=== PATIENT | female | born 1960 | race Caucasian/White ===

== ENCOUNTER 2020-07-20 09:39 | Emergency (ER) | payer BC, SELFPAY ==
[2020-07-20 09:45] VITALS: BP 147/71; PULSE 77; RESP 20; TEMP 37; O2SAT 99; BMI 30.5
--- NOTE | 2020-07-20 10:27 | HMH.EDUTC ---
[facility] [place] Disposition Clinical Impression: COVID-19 virus test result unknown Sinusitis Qualifiers: Sinusitis location: maxillary Chronicity: acute Recurrence: non-recurrent Qualified Code(s): J01.00 - Acute maxillary sinusitis, unspecified Disposition: Home, Self-Care Condition on Discharge: Good Instructions: DI for Sinusitis, Sinusitis, DI for COVID-19 (Suspected or Confirmed ), COVID-19: Protecting Yourself When You're at High Risk, Preventing the Spread of Coronavirus Discharge Instructions Additional Instructions: Start antibiotic patient to take as ordered for a full length of time even if you feel better. Sinus infections do not get better overnight. It may take 2-3 days to notice much improvement so be sure to use conservative measures as discussed for symptoms. Flonase 1 spray each nostril daily to help with nasal congestion, sinus and ear pressure/information Increase fluids Humidifier/vaporizer as needed Tylenol and ibuprofen as needed for fever or pain. If symptoms do not improve or get worse return or be seen in the ER Follow-up with primary care this week self isolate until test results are known Prescriptions: Fluticasone Propionate [Flonase 50mcg nasal spray 16gm] 1 spr NS DAILY 14 Days #1 bottle Transmission Status: Pending to [email or web address] # Azithromycin [Zithromax 250mg tab] 250 mg PO DIRECTED #6 tab Transmission Status: Pending to [email or web address] # Referrals: Roxana Willis [Primary Care Provider] - Time of Disposition: 10:33 Medical Decision Making - Bryan Inquiry Pt receiving controlled substance: No Vital Signs: 07/20/20 09:45 Temperature 98.6 F Temperature Source Oral Pulse Rate [Right Brachial] 77 Respiratory Rate 20 Blood Pressure [Right Arm] 147/71 H Blood Pressure Mean [Right Arm] 96 Blood Pressure Source [Right Arm] Automatic Cuff Blood Pressure Position [Right Arm] Sitting 02 Sat by Pulse Oximetry 99 Oxygen Delivery Method Room Air Orders (Tests/Meds): ORDERS Category Date Time Status Covid-19 Nasal PCR ([facility]) Routine Lab 07/20/20 10:18 Ordered [facility] HPI - General Chief complaint: Urgent [facility] Stated complaint: cough, sore throat, congestion Time Seen by Provider: 07/20/20 10:27 Mode of Arrival: Ambulatory Source of Information: Patient Limitations: No Limitations Description of Symptoms (Recalled from Triage Doc. by RN): PATIENT C/O COUGH, BODY ACHES, SINUS/CHEST CONGESTION, CHILLS, AND SCRATCHY THROAT X 2 DAYS. REQUESTING COVID TEST HEENT Symptoms (Recalled from RN notes): Yes Resp Symptoms (Recalled from RN notes): Yes Skin Symptoms (Recalled from RN notes): No MS Symptoms (Recalled from RN notes): No Functional Status (Recalled from RN notes): WNL - History of Present Illness Provider Complaint: 59 yr old female presents for sinus pressure,yellow green nasal drainage, body aches and cough for 2 days. - Related Data Previous Rx's Medication Instructions Recorded Azithromycin [Zithromax 250mg 250 mg PO DIRECTED #6 tab 07/20/20 tab] Fluticasone Propionate [Flonase 1 spr NS DAILY 14 Days #1 bottle 07/20/20 50mcg nasal spray 16gm] Allergies Allergy/AdvReac Type Severity Reaction Status Date / Time No Known Allergies Allergy Verified 07/20/20 10:20 - Worker's Comp Is this a Worker's Comp case?: No [facility] History - Hepatitis A Screen Drug use history?: No High risk sexual behaviors?: No History of sexually transmitted infection?: No Currently employed?: No Childcare worker?: No Do you have indoor plumbing?: Yes Do you have electricity?: Yes Attestation statement:: This patient has been screened for Hepatitis A risk factors. I have reviewed the patient's past medical history: Yes - Social History Alcohol Intake: never Occupational Status: other ROS Obtained: Yes Systems reviewed as appropriate & no additional complaints - Constitutional Constitutional: Reports system r
[2020-07-20 10:30] VITALS: BP 147/71; PULSE 77; RESP 20; TEMP 37; O2SAT 99
--- NOTE | 2020-07-20 18:49 | PC.NURSE ---
patient notified of positive covid results
== END 2020-07-20 10:35 | disposition home or self-care (01) ==
PROVIDERS: Emergency Provider Nurse Practitioner Family; PCP Internal Medicine
DX: U07.1 COVID-19 (principal); J01.00 Acute maxillary sinusitis, unspecified
CPT/HCPCS: 99202; G0463; U0003

== ENCOUNTER 2021-06-19 09:32 | Emergency (ER) | payer BC, SELFPAY ==
[2021-06-19 11:06] VITALS: BP 197/86; PULSE 70; RESP 16; TEMP 36.9; O2SAT 99; BMI 29.8
--- NOTE | 2021-06-19 12:41 | HMH.EDUTC ---
[facility] [place] Disposition Clinical Impression: Embedded tick of abdominal wall Qualifiers: Encounter type: initial encounter Qualified Code(s): S30.851A - Superficial foreign body of abdominal wall, initial encounter Disposition: Home, Self-Care Condition on Discharge: Good Instructions: Protect Yourself from Tickborne Illnesses Additional Instructions: Keep the wounds clean and dry. Follow up with your regular doctor for any issues. It would be a good idea to follow up regardless. Take the antibiotics as directed and apply the topical antibiotics as directed. Watch the site for signs of worsening infection, such as worsening redness, drainage, swelling, etc. Also watch for the erythema migrans (bull's eye) rash. The doxycycline is the preferred antibiotic to treat Lyme's Disease with,(so you should be covered even if you do get the rash), but follow up if you notice this anyway. GO TO THE ER FOR ANY WORSENING SYMPTOMS Eat food with the doxycycline (antibiotics). This antibiotic can be hard on your GI tract. If you absolutely can't tolerate the GI effects then please call us or your regular doctor. There are alternatives that this could be switched to if necessary. Prescriptions: Mupirocin [Bactroban 2% Ointment 22gm tube] 1 applicatio TP TID 7 Days #1 gm Transmission Status: Received by [facility] # Doxycycline Monohydrate [Doxycycline [place] 100mg Tab] 100 mg PO Q12 10 Days #20 tab Transmission Status: Received by [facility] # Referrals: Roxana Willis [Primary Care Provider] - Time of Disposition: 12:46 Medical Decision Making - Medical Records Medical records reviewed: No: I reviewed the patient's medical records. - Bryan Inquiry Pt receiving controlled substance: No Vital Signs: 06/19/21 11:06 06/19/21 12:53 Temperature 98.4 F 98.4 F Temperature Source Oral Pulse Rate 70 Pulse Rate [Left] 70 Respiratory Rate 16 16 Blood Pressure 197/86 H Blood Pressure [Right Arm] 197/86 H Blood Pressure Mean [Right Arm] 123 02 Sat by Pulse Oximetry 99 Orders (Tests/Meds): ED MEDICATIONS Discontinued Medications Generic Name Dose Route Start Last Admin Trade Name Freq PRN Reason Stop Dose Admin Lidocaine HCl 2 ml 06/19/21 12:55 06/19/21 12:56 Lidocaine 1% Pf 2ml Ampule SQ 06/19/21 12:56 2 mg ONCE ONE Administration [facility] HPI - General Stated complaint: possible tick head in right side Time Seen by Provider: 06/19/21 11:30 Mode of Arrival: Ambulatory Source of Information: Patient Limitations: No Limitations Description of Symptoms (Recalled from Triage Doc. by RN): pt states she found a tick on her R side of her ribs yesterday. pt attempted to remove it but the head of the tick is still imbedded. HEENT Symptoms (Recalled from RN notes): No Resp Symptoms (Recalled from RN notes): No Skin Symptoms (Recalled from RN notes): Yes (tick embeded in R rib side) MS Symptoms (Recalled from RN notes): No Functional Status (Recalled from RN notes): wnl - History of Present Illness Provider Complaint: She states that yesterday evening she found a very small tick embedded on her right flank. She removed the tick with tweezers, but it was embedded down into her skin and she was unable to get it all completely removed. She is having itching, discomfort and redness at the site. She denies any fever, chills, body aches or joint pain. - Related Data Previous Rx's Medication Instructions Recorded Azithromycin [Zithromax 250mg 250 mg PO DIRECTED #6 tab 07/20/20 tab] fluticasone propionate 50 1 spray INTRANASAL DAILY 14 Days 08/16/20 mcg/actuation nasal #1 g spray,suspension Doxycycline Monohydrate 100 mg PO Q12 10 Days #20 tab 06/19/21 [Doxycycline [place] 100mg Tab] Mupirocin [Bactroban 2% Ointment 1 applicatio TP TID 7 Days #1 gm 06/19/21 22gm tube] Allergies Allergy/AdvReac Type Severity Reaction Sta
[2021-06-19 12:53] VITALS: BP 197/86; PULSE 70; RESP 16; TEMP 36.9
== END 2021-06-19 12:56 | disposition home or self-care (01) ==
PROVIDERS: Emergency Provider Nurse Practitioner Family; PCP Internal Medicine
DX: S30.851A Superficial foreign body of abdominal wall, initial encounter (principal)
CPT/HCPCS: 10120; 99202; G0463

== ENCOUNTER 2021-11-16 09:01 | Emergency (ER) | payer BC, SELFPAY ==
[2021-11-16 09:23] VITALS: BP 144/57; PULSE 60; RESP 18; TEMP 36.5; O2SAT 96; BMI 29.6
--- NOTE | 2021-11-16 09:59 | HMH.EDUTC ---
[facility] [place] Disposition Clinical Impression: Tick bite Qualifiers: Encounter type: initial encounter Site of tick bite: thigh Laterality: right Qualified Code(s): S70.361A - Insect bite (nonvenomous), right thigh, initial encounter Cellulitis Qualifiers: Site of cellulitis: extremity Site of cellulitis of extremity: lower extremity Laterality: right Qualified Code(s): L03.115 - Cellulitis of right lower limb Disposition: Home, Self-Care Condition on Discharge: Good Instructions: Cellulitis, Protect Yourself from Tickborne Illnesses Additional Instructions: Keep the affected area clean and dry. Follow up with your regular doctor. Take the antibiotics as directed and apply the topical antibiotics as directed. Apply warm wet compresses to the affected area three or four times per day. The mupirocin ointment (bactroban) is for helping to treat infection, so use it regularly as directed. The triamcinoline cream is for itching at the site, use is as needed. GO TO THE ER FOR ANY WORSENING SYMPTOMS Prescriptions: Mupirocin [Bactroban 2% Ointment 22gm tube] 1 applicatio TP TID 7 Days #1 gm Transmission Status: Received by [facility] #[id number] Doxycycline Monohydrate [Doxycycline [place] 100mg Tab] 100 mg PO Q12 10 Days #20 tab Transmission Status: Received by [facility] #[id number] Triamcinolone Acetonide 1 applicatio TP TIDP PRN 7 Days #1 gm PRN Reason: Itching Transmission Status: Received by [facility] #[id number] Referrals: Roxana Willis [Primary Care Provider] - Time of Disposition: 10:03 Medical Decision Making - Medical Records Medical records reviewed: No: I reviewed the patient's medical records. - Bryan Inquiry Pt receiving controlled substance: No Vital Signs: 11/16/21 09:23 11/16/21 10:23 Temperature 97.7 F 97.7 F Temperature Source Oral Pulse Rate 60 Pulse Rate [Left] 60 Respiratory Rate 18 18 Blood Pressure 144/57 H Blood Pressure [Right Arm] 144/57 H Blood Pressure Mean [Right Arm] 86 02 Sat by Pulse Oximetry 96 [facility] [place] HPI - General Stated complaint: swollen tick bite Time Seen by Provider: 11/16/21 09:35 Mode of Arrival: Ambulatory Source of Information: Patient Description of Symptoms (Recalled from Triage Doc. by RN): on tuesday pt got a tick bite. the area is swollen and red. the tick is not still in the skin. HEENT Symptoms (Recalled from RN notes): No Resp Symptoms (Recalled from RN notes): No Skin Symptoms (Recalled from RN notes): Yes MS Symptoms (Recalled from RN notes): No Functional Status (Recalled from RN notes): wnl - History of Present Illness Provider Complaint: She found an tick that was imbedded on her right thight. She removed it, but the area around it has became red. - Related Data Previous Rx's Medication Instructions Recorded Azithromycin [Zithromax 250mg 250 mg PO DIRECTED #6 tab 07/20/20 tab] fluticasone propionate 50 1 spray INTRANASAL DAILY 14 Days 08/16/20 mcg/actuation nasal #1 g spray,suspension Doxycycline Monohydrate 100 mg PO Q12 10 Days #20 tab 06/19/21 [Doxycycline [place] 100mg Tab] Mupirocin [Bactroban 2% Ointment 1 applicatio TP TID 7 Days #1 gm 06/19/21 22gm tube] Doxycycline Monohydrate 100 mg PO Q12 10 Days #20 tab 11/16/21 [Doxycycline [place] 100mg Tab] Mupirocin [Bactroban 2% Ointment 1 applicatio TP TID 7 Days #1 gm 11/16/21 22gm tube] Triamcinolone Acetonide 1 applicatio TP TIDP PRN 7 Days #1 11/16/21 gm Allergies Allergy/AdvReac Type Severity Reaction Status Date / Time No Known Allergies Allergy Verified 11/16/21 09:27 - Worker's Comp Is this a Worker's Comp case?: No [facility] History - Hepatitis A Screen Attestation statement:: This patient has been screened for Hepatitis A risk factors. I have reviewed the patient's past medical history: Yes - Social History Alcohol Intake: never Occupational Status: other ROS Obt
[2021-11-16 10:23] VITALS: BP 144/57; PULSE 60; RESP 18; TEMP 36.5
== END 2021-11-16 10:24 | disposition home or self-care (01) ==
PROVIDERS: Emergency Provider Nurse Practitioner Family; PCP Internal Medicine
DX: S70.361A Insect bite (nonvenomous), right thigh, initial encounter (principal); L03.115 Cellulitis of right lower limb
CPT/HCPCS: 99212; G0463

== ENCOUNTER 2022-06-28 09:40 | Emergency (ER) | payer BC, SELFPAY ==
--- NOTE | 2022-06-28 11:00 | EXP.UTC ---
Discharge Plan Disposition Patient Disposition: Home, Self-Care Condition: Good Prescriptions Prescriptions: New mupirocin 2 % ointment 1 applic topical TID 7 Days Qty: 15 2RF doxycycline hyclate [doxycycline hyclate] 100 mg capsule 100 mg PO Q12 10 Days Qty: 20 0RF No Action fluticasone propionate 50 mcg/actuation spray,suspension 1 spray INTRANASAL DAILY 14 Days Qty: 1 0RF azithromycin 250 MG tablet 250 mg PO DIRECTED Qty: 6 0RF Rx Instructions: Take two (2) tablets on day #1, then one (1) tablet day #2 thru #5 triamcinolone acetonide 15 GM cream 1 applicatio TP TIDP PRN (Reason: Itching) 7 Days Qty: 1 0RF Rx Instructions: 0.025% mupirocin 22 GM ointment 1 applicatio TP TID 7 Days Qty: 1 0RF doxycycline monohydrate 100 MG tablet 100 mg PO Q12 10 Days Qty: 20 0RF doxycycline monohydrate 100 MG tablet 100 mg PO Q12 10 Days Qty: 20 0RF mupirocin 22 GM ointment 1 applicatio TP TID 7 Days Qty: 1 0RF Referrals Follow up/Referrals: Provider,Referral, MD [Primary Care Provider] - See instructions Activity Restrictions/Add. Instructions Additional Instructions/Restrictions: Take tylenol or ibuprofen for pain or fever. Take the medications as directed. Follow up with your regular doctor. GO TO THE ER FOR ANY WORSENING SYMPTOMS Clinical Impressions Clinical Impression: Tick bite Instructions Patient Instructions: DI for Insect Bites and Stings, Protect Yourself from Tickborne Illnesses Discharge ED Provider: Gaurav Skelton [facility] General Stated complaint: tick located chest Time Seen by Provider: 06/28/22 11:00 History of Present Illness Provider Complaint: She is here with a tick embedded on her left upper chest. 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 She denies any other complaints or issues. Related Data Previous Rx's Medication Instructions Recorded azithromycin 250 mg tablet 250 mg PO DIRECTED #6 tabs 07/20/20 fluticasone propionate 50 1 spray intranasal DAILY 14 days 08/16/20 mcg/actuation nasal #1 g spray,suspension doxycycline monohydrate 100 mg 100 mg PO Q12 10 days #20 tabs 06/19/21 tablet mupirocin 2 % topical ointment 1 applicatio TP TID 7 days ##1 06/19/21 doxycycline monohydrate 100 mg 100 mg PO Q12 10 days #20 tabs 11/16/21 tablet mupirocin 2 % topical ointment 1 applicatio TP TID 7 days ##1 11/16/21 triamcinolone acetonide 0.025 % 1 applicatio TP TIDP PRN Itching 7 11/16/21 topical cream days ##1 doxycycline hyclate 100 mg capsule 100 mg PO Q12 10 days #20 caps 06/28/22 mupirocin 2 % topical ointment 1 applic topical TID 7 days #15 06/28/22 grams Allergies Allergy/AdvReac Type Severity Reaction Status Date / Time No Known Allergies Allergy Verified 06/28/22 11:22 [facility] Disclaimer: The information contained in this section may have been updated after the patient was seen, as this information can be updated by other users. Social History Smoking Status: Never smoker alcohol intake: never current occupational status: other Travel in the last 8 weeks: None ROS Obtained: Yes All systems reviewed & no additional complaints except as documented Constitutional Constitutional: Denies chills and Denies fever(s) Eyes Eyes: Denies eye discharge ENT Ears, Nose, Mouth, and Throat: Denies dizziness, Denies otalgia and Denies sore throat Cardiovascular Cardiovascular: Denies chest pain Respiratory Respiratory: Denies shortness of breath, Denies chest congestion, Denies cough, Denies stridor and Denies wheezing Gastrointestinal Gastrointestingal: Denies nausea or vomiting Musculoskeletal Musculoskeletal: Reports system reviewed and no additional complaints, except as documented and Denies arthralgias Integumentary/Breasts Skin/Breast: Reports as per HPI and Denies rash Neurologic Neurologic: Denies dizziness and Denies paresthesias Allergic/Immunologic Allergic/Immuno
[2022-06-28 11:14] VITALS: BP 153/72; PULSE 63; RESP 15; TEMP 36.5; O2SAT 98; BMI 30.2
[2022-06-28 12:24] VITALS: BP 153/72; PULSE 63; RESP 15; TEMP 36.5
== END 2022-06-28 12:25 | disposition home or self-care (01) ==
PROVIDERS: Emergency Provider Nurse Practitioner Family
DX: S20.362A Insect bite (nonvenomous) of left front wall of thorax, initial encounter (principal); W57.XXXA Bitten or stung by nonvenomous insect and other nonvenomous arthropods, initial encounter
CPT/HCPCS: 99212; G0463

== ENCOUNTER 2024-02-19 22:26 | Emergency (ER) | payer BC, SELFPAY ==
[2024-02-19 22:28] VITALS: BP 167/74; PULSE 83; RESP 20; TEMP 36.9; O2SAT 97
--- NOTE | 2024-02-19 22:43 | ED_ITS ---
Discharge Plan Disposition Patient Disposition: Home, Self-Care Condition: Good Prescriptions Prescriptions: New oxycodone 5 mg tablet 5 mg PO Q8H PRN (Reason: pain) Qty: 12 0RF No Action fluticasone propionate 50 mcg/actuation spray,suspension 1 spray INTRANASAL DAILY 14 Days Qty: 1 0RF azithromycin 250 MG tablet 250 mg PO DIRECTED Qty: 6 0RF Rx Instructions: Take two (2) tablets on day #1, then one (1) tablet day #2 thru #5 triamcinolone acetonide 15 GM cream 1 applicatio TP TIDP PRN (Reason: Itching) 7 Days Qty: 1 0RF Rx Instructions: 0.025% mupirocin 22 GM ointment 1 applicatio TP TID 7 Days Qty: 1 0RF doxycycline monohydrate 100 MG tablet 100 mg PO Q12 10 Days Qty: 20 0RF mupirocin 2 % ointment 1 applic topical TID 7 Days Qty: 15 2RF doxycycline hyclate [doxycycline hyclate] 100 mg capsule 100 mg PO Q12 10 Days Qty: 20 0RF doxycycline monohydrate 100 MG tablet 100 mg PO Q12 10 Days Qty: 20 0RF mupirocin 22 GM ointment 1 applicatio TP TID 7 Days Qty: 1 0RF Referrals Follow up/Referrals: Casey Nolan DO [Staff Physician] - See instructions Provider,Referral, MD [Primary Care Provider] - See instructions Activity Restrictions/Add. Instructions Additional Instructions/Restrictions: Please call in the morning to make an appointment with Dr. Nolan of orthopedics. You have been given a walking boot and crutches but you should not bear weight on this foot until orthopedic evaluation. Return to ER for any worsening signs or symptoms as needed. Clinical Impressions Clinical Impression: Fracture of fifth metatarsal bone of right foot Qualifiers: Encounter type: initial encounter Fracture type: closed Instructions Patient Instructions: DI for Foot Fracture Print Language Print Language: Swedish Discharge ED Provider: Santino Simmons General Adult HPI <CARA Aguila - Last Filed: 02/19/24 23:34> General Chief complaint: Extremity Injury, Lower Stated complaint: AO 8-4-24 twisted foot when she was feeding Time Seen by Provider: 02/19/24 22:43 History of Present Illness HPI narrative: Patient presents for evaluation of a right foot injury. Patient was feeding her horses and stepped down into a hole causing her foot to invert and she felt a pop and immediate pain at the lateral aspect of her right foot. She is able to bear weight but it is extremely painful. She denies any numbness or tingling. Related Data Previous Rx's ?Medication ?Instructions ?Recorded azithromycin 250 mg tablet 250 mg PO DIRECTED #6 tabs 07/20/20 fluticasone propionate 50 1 spray intranasal DAILY 14 days 08/16/20 mcg/actuation nasal #1 g spray,suspension doxycycline monohydrate 100 mg 100 mg PO Q12 10 days #20 tabs 06/19/21 tablet mupirocin 2 % topical ointment 1 applicatio TP TID 7 days ##1 06/19/21 doxycycline monohydrate 100 mg 100 mg PO Q12 10 days #20 tabs 11/16/21 tablet mupirocin 2 % topical ointment 1 applicatio TP TID 7 days ##1 11/16/21 triamcinolone acetonide 0.025 % 1 applicatio TP TIDP PRN Itching 7 11/16/21 topical cream days ##1 doxycycline hyclate 100 mg capsule 100 mg PO Q12 10 days #20 caps 06/28/22 mupirocin 2 % topical ointment 1 applic topical TID 7 days #15 06/28/22 grams oxycodone 5 mg tablet 5 mg PO Q8H PRN pain #12 tabs 02/19/24 Allergies Allergy/AdvReac Type Severity Reaction Status Date / Time No Known Allergies Allergy Verified 06/28/22 11:22 [facility] <CARA Aguila - Last Filed: 02/19/24 23:34> [facility] Disclaimer: The information contained in this section may have been updated after the patient was seen, as this information can be updated by other users. Social History (Updated 06/28/22 @ 21:21 by Gaurav Skelton APRN) Smoking Status: Never smoker alcohol intake: never current occupational status: other Travel in the last 8 weeks: None <CARA Aguila - Last Filed: 02/19/24 23:34> ROS Obtained: Yes Systems reviewed as appropriate & no additional complaints except as documented Physical Exam <CARA Aguila - Last Filed: 02/19/24 23:34> General General appearance: alert and in no apparent distress Respiratory Respiratory exam: Present normal lung sounds bilaterally Cardiovascular Cardiovascular exam: Present regular rate and normal rhythm; Absent normal heart sounds Expanded Lower Extremity Exam Right: Top foot image: 2 1. Ecchymosis tenderness no palpable bony deformity 2. Chronic swelling with no tenderness to palpation Neurological Exam Neurological exam: Present alert and oriented X3 Medical Decision Making <CARA Aguila - Last Filed: 02/19/24 23:34> Bryan Inquiry Pt receiving controlled substance: No Vital Signs: 02/19/24 22:28 02/20/24 00:00 Temperature 98.4 F 97.9 F Temperature Source Oral Oral Pulse Rate 68 Pulse Rate [Right] 83 Respiratory Rate 20 15 Blood Pressure 164/52 H Blood Pressure [Right Arm] 167/74 H Blood Pressure Mean [Right Arm] 105 Blood Pressure Source Automatic Cuff Blood Pressure Source [Right Arm] Automatic Cuff Blood Pressure Position Sitting Blood Pressure Position [Right Arm] Sitting 02 Sat by Pulse Oximetry 97 Oxygen Delivery Method Room Air Room Air Orders (Tests/Meds): ORDERS Category Date Time Status Ankle XR -Right minimum 3 Views [XR ankle RT min 3V] Exams 02/19/24 22:45 Taken Stat Foot XR right 2 views [XR foot RT 2V] Stat Exams 02/19/24 22:45 Taken Medical Decision Narrative: In summary patient is a 63-year-old female who presents to the emergency department for evaluation of right foot injury. Patient is hemodynamically stable upon arrival, afebrile. Physical exam is remarkable for ecchymosis and tenderness to palpation at the base of the right fifth metacarpal with no palpable bony deformity.. Differential diagnosis includes fracture versus hematoma wrist sprain etc. Initial workup will be conducted with plain film x- rays. Initial interventions include Tylenol Motrin p.o. Initial workup reviewed by me shows that BMI informal interpretation she has a base of the fifth metacarpal fracture prior to radiology read. Upon repeat evaluation patient had some reduction in her pain after Tylenol Motrin. Given this patient was placed in a walking boot with crutches be nonweightbearing and referred to orthopedic surgery for further evaluation <Santino Simmons MD - Last Filed: 02/20/24 00:15> Vital Signs: 02/19/24 22:28 02/20/24 00:00 Temperature 98.4 F 97.9 F Temperature Source Oral Oral Pulse Rate 68 Pulse Rate [Right] 83 Respiratory Rate 20 15 Blood Pressure 164/52 H Blood Pressure [Right Arm] 167/74 H Blood Pressure Mean [Right Arm] 105 Blood Pressure Source Automatic Cuff Blood Pressure Source [Right Arm] Automatic Cuff Blood Pressure Position Sitting Blood Pressure Position [Right Arm] Sitting 02 Sat by Pulse Oximetry 97 Oxygen Delivery Method Room Air Room Air Orders (Tests/Meds): ORDERS Category Date Time Status Ankle XR -Right minimum 3 Views [XR ankle RT min 3V] Exams 02/19/24 22:45 Taken Stat Foot XR right 2 views [XR foot RT 2V] Stat Exams 02/19/24 22:45 Taken Medical Decision Narrative: In summary patient is a 63-year-old female who presents to the emergency department for evaluation of right foot injury. Patient is hemodynamically stable upon arrival, afebrile. Physical exam is remarkable for ecchymosis and tenderness to palpation at the base of the right fifth metacarpal with no palpable bony deformity.. Differential diagnosis includes fracture versus hematoma wrist sprain etc. Initial workup will be conducted with plain film x- rays. Initial interventions include Tylenol Motrin p.o. Initial workup reviewed by me shows that BMI informal interpretation she has a base of the fifth metacarpal fracture prior to radiology read. Upon repeat evaluation patient had some reduction in her pain after Tylenol Motrin. Given this patient was placed in a walking boot with crutches be nonweightbearing and referred to orthopedic surgery for further evaluation Troy SERRANO: I assumed care of the patient at the time of handoff from the prior provider. On reassessment patient reports pain is controlled as long as she is not moving too much. Imaging independently interpreted by me and shows a Cox fracture on the right foot. No other fractures noted. Concern for possible nonunion, patient was placed in a walking boot and instructed to remain nonweightbearing. She was discharged with instructions to follow-up with either Dr. Nolan or Dr. Herring further assessment. Critical Care <CARA Aguila - Last Filed: 02/19/24 23:34> Critical Care Time Critical Care Time: No
--- NOTE | 2024-02-19 22:45 | XR_ITS ---
PROCEDURE INFORMATION: Exam: XR Right Ankle Exam date and time: 02/19/2024 11:11 PM Age: 63 years old Clinical indication: Injury or trauma; Fall; Other: Pain TECHNIQUE: Imaging protocol: Radiologic exam of the right ankle. Views: 3 or more views. Total images: 3 COMPARISON: No relevant prior studies available. FINDINGS: Bones/joints: No acute fracture or joint dislocation. Ankle mortise is maintained. No significant degenerative arthropathy. Small tibiotalar joint effusion. Unremarkable hindfoot anatomy. Soft tissues: Mild soft tissue swelling. IMPRESSION: 1. No acute osseous abnormality. 2. Mild soft tissue swelling. 3. Small tibiotalar joint effusion.
--- NOTE | 2024-02-19 22:45 | XR_ITS ---
PROCEDURE INFORMATION: Exam: XR Right Foot Exam date and time: 02/19/2024 11:13 PM Age: 63 years old Clinical indication: Injury or trauma; Fall; Other: Pain TECHNIQUE: Imaging protocol: Radiologic exam of the right foot. Views: 1 or 2 views. Total images: 2 COMPARISON: CR XR ANKLE RT MIN 3V 02/19/2024 11:11 PM FINDINGS: Bones/joints: Acute transverse nondisplaced fracture base of the 5th metatarsal. No additional fractures. No joint dislocation. Moderate degenerative change 1st MTP joint. Age-appropriate degenerative changes interphalangeal joints of all 5 digits. Large os naviculare is a normal variant. Tiny calcaneal enthesophytes. No concerning bone lesions. Soft tissues: Soft tissue swelling at the fracture site. IMPRESSION: Acute nondisplaced transverse fracture base of the 5th metatarsal.
[2024-02-20] VITALS: BP 164/52; PULSE 68; RESP 15; TEMP 36.6; O2SAT 99
== END 2024-02-20 00:03 | disposition home or self-care (01) ==
PROVIDERS: Emergency Provider Emergency Medicine
DX: S92.354A Nondisplaced fracture of fifth metatarsal bone, right foot, initial encounter for closed fracture (principal); W18.42XA Slipping, tripping and stumbling without falling due to stepping into hole or opening, initial encounter
CPT/HCPCS: 73610; 73620; 99283

== ENCOUNTER 2024-02-28 10:24 | Outpatient (CLI) | payer BC, SELFPAY ==
--- NOTE | 2024-02-28 10:28 | XR_ITS ---
FINAL REPORT CLINICAL HISTORY: Foot Pain, dorado fracture, stepped in hole last week COMPARISON: None FINDINGS: RIGHT FOOT: Three views of the right foot were obtained. There is a nondisplaced transverse fracture of the proximal fifth metatarsal without significant callus formation, of indeterminate age. The joint spaces are intact. There is no soft tissue abnormality. A pes planus deformity of the foot is present. IMPRESSION: Nondisplaced transverse fracture of the proximal fifth metatarsal, without significant callus formation. This fracture is of indeterminate age. Pes planus deformity of the foot. Reviewed, Interpreted and Dictated by Gerber Alejandre III, MD Transcribed by Annmarie Wilkes Authenticated and [facility]
== END 2024-02-28 23:59 | disposition home or self-care (01) ==
LOC: RAD 10:25
PROVIDERS: PCP Internal Medicine; Visit Provider Podiatrist
DX: M79.671 Pain in right foot (principal)
CPT/HCPCS: 73630

== ENCOUNTER 2024-03-27 14:11 | Outpatient (CLI) | payer BC, SELFPAY ==
--- NOTE | 2024-03-27 14:19 | XR_ITS ---
FINAL REPORT CLINICAL HISTORY: Foot Pain COMPARISON: 02/28/2024 FINDINGS: RIGHT FOOT: Three views of the right foot were obtained. The nondisplaced fracture of the proximal fifth metatarsal seen on the prior exam of February 27 is stable in appearance. There is mild callus formation present. Mild degenerative change is present. There is no soft tissue abnormality. IMPRESSION: Nondisplaced fracture base of the fifth metatarsal, with mild callus formation. Alignment is stable when compared to the prior exam. Reviewed, Interpreted and Dictated by Gerber Alejandre III, MD Transcribed by Annmarie Wilkes Authenticated and [facility]
== END 2024-03-27 23:59 | disposition home or self-care (01) ==
LOC: RAD 14:12
PROVIDERS: PCP Internal Medicine; Visit Provider Podiatrist
DX: S99.191D Other physeal fracture of right metatarsal, subsequent encounter for fracture with routine healing (principal); M79.671 Pain in right foot
CPT/HCPCS: 73630

== ENCOUNTER 2024-04-24 10:00 | Outpatient (CLI) | payer BC, SELFPAY ==
--- NOTE | 2024-04-24 10:07 | XR_ITS ---
FINAL REPORT TECHNIQUE: 3 views. CLINICAL HISTORY: Acute right foot pain, fracture, follow-up. COMPARISON: March 27, 2024. FINDINGS: RIGHT FOOT 3 views of the right foot were obtained. There has been interval healing of a fracture of the base of the fifth metatarsal. There is mild and moderate degenerative change. A plantar calcaneal spur is identified. Soft tissues are unremarkable. IMPRESSION: Interval healing of a fracture of the base of the fifth metatarsal. Reviewed, Interpreted and Dictated by Gerber Alejandre III, MD Transcribed by Sheri Hernandez PA-C Authenticated and . [facility]
== END 2024-04-24 23:59 | disposition home or self-care (01) ==
LOC: RAD 10:03
PROVIDERS: PCP Internal Medicine; Visit Provider Podiatrist
DX: M79.671 Pain in right foot (principal); B35.1 Tinea unguium
CPT/HCPCS: 73630; 87102; 87206; 87220

== ENCOUNTER 2024-05-21 08:39 | Outpatient (CLI) | payer BC, SELFPAY ==
--- NOTE | 2024-05-21 08:44 | XR_ITS ---
FINAL REPORT CLINICAL HISTORY: dorado fracture x 5 months ago COMPARISON: 04/24/2024 FINDINGS: RIGHT FOOT: Three views of the right foot were obtained. There is a chronic fracture of the proximal fifth metatarsal with apparent partial nonunion. There is no acute fracture or dislocation. There is mild degenerative change. There is no soft tissue abnormality. 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 Authenticated and [facility]
== END 2024-05-21 23:59 | disposition home or self-care (01) ==
PROVIDERS: PCP Internal Medicine; Visit Provider Podiatrist
DX: M79.671 Pain in right foot (principal)
CPT/HCPCS: 73630

== ENCOUNTER 2024-07-03 10:13 | Outpatient (CLI) | payer BC, SELFPAY ==
--- NOTE | 2024-07-03 10:28 | XR_ITS ---
FINAL REPORT CLINICAL HISTORY: Foot pain, dorado fx in january COMPARISON: 05/21/2024 FINDINGS: RIGHT FOOT 3 views of the right foot were obtained. Healed fracture is seen of the proximal fifth metatarsal. Severe, diffuse osteopenia limits assessment of the digits. However, there is a probable, age-indeterminate healing transverse fracture of the fifth proximal phalanx which is new from prior exam. Diffuse degenerative changes are seen. Visualized joint spaces are normally aligned. Soft tissues are unremarkable. IMPRESSION: Healed fracture of the proximal fifth metatarsal. Age-indeterminate, healing transverse fracture of the fifth proximal phalanx, new from prior exam. Reviewed, Interpreted and Dictated by Azucena White MD Transcribed by Ligia Rogers Authenticated and [facility]
== END 2024-07-03 23:59 | disposition home or self-care (01) ==
LOC: RAD 10:15
PROVIDERS: PCP Internal Medicine; Visit Provider Podiatrist
DX: M79.671 Pain in right foot (principal)
CPT/HCPCS: 73630

== ENCOUNTER 2024-09-03 09:36 | Outpatient (CLI) | payer BC, SELFPAY ==
--- NOTE | 2024-09-03 09:40 | XR_ITS ---
FINAL REPORT CLINICAL HISTORY: Right Foot Pain COMPARISON: 07/03/2024 FINDINGS: AP, oblique and lateral views of the right foot were obtained. There has been interval healing of the previously seen fractures at the base of the fifth metatarsal and the base of the fifth proximal phalanx. No acute fracture or dislocation is seen. There is multijoint degenerative disease which is unchanged. Soft tissues are unremarkable. IMPRESSION: Healing fractures without acute osseous abnormality. Reviewed, Interpreted and Dictated by Denice Dominguez MD Transcribed by Suzy Reilly Authenticated and [facility]
== END 2024-09-03 23:59 | disposition home or self-care (01) ==
LOC: RAD 09:38
PROVIDERS: PCP Internal Medicine; Visit Provider Podiatrist
DX: M79.671 Pain in right foot (principal); S92.501A Displaced unspecified fracture of right lesser toe(s), initial encounter for closed fracture; S86.311A Strain of muscle(s) and tendon(s) of peroneal muscle group at lower leg level, right leg, initial encounter; S99.191K Other physeal fracture of right metatarsal, subsequent encounter for fracture with nonunion
CPT/HCPCS: 73630

== ENCOUNTER 2025-01-04 10:05 | Outpatient (CLI) | payer OTHER, SELFPAY ==
--- OUTSIDE RECORDS SUMMARY | 2025-01-07 10:27 | XMS_ITS | Encounter Summary ---
Author Organization [facility] Address [address] [place] [address] Care Team Providers Care Labor Gang Supervisor Name Role Phone Roxana Willis DO Primary Care Provider [phone] Reason for Visit * Reason Onset Date Comments Labs Only 06/04/2024 Encounter Details Date Type Department Care Team (Late st Contact Info) Description 06/04/2024 Telephone [facility] Primary Care & Internal Med [address] [facility] [address] [place] [address] Roxana Willis DO [address] [facility] [address] [place] [address] Labs Only Social History Tobacco Use Types Packs/Day Years Used Date Smoking Tobacco: Never Smokeless Tobacco: Never Alcohol Use Standard Drinks/Week Comments Yes 0 (1 standard drink = 0.6 oz pur e alcohol) PHQ-2 Answer Date Recorded Patient Health Questionnaire-2 Score 0 06/14/2023 Interpersonal Safety Answer Date Record ed Family or friends hurt you Not on file 07/29 Family or friends insult you Not on file 06/2024 Family or friends threaten you Not on file 0 07/29/2023 Family or friends scream or curse at you Not on file 07/29/2023 Housing Stability Answer Date Recorded Living situation today Not on file Living situation problems Not on file 2023 Family and Community Support Answer Rakesh e Recorded Help with Day to Day Activities Not on file 07/29/2023 Feeling Lonely or Isolated Not on file 07/29 Educational Attainment Answer Date Baljeet rded Speak language other than Albanian at home Not on file 07/29/2023 Want help with school or training Not on file 07/29/2023 Depression Answer Date Recorded PHQ-2 Risk Not on file 07/29/2023 Disabilities Answer Date Recorded Difficulty concentrating Not on file 024 Difficulty doing errands alone Not on file 0 07/29/2023 Substance Use Answer Date Recorded Used prescription meds for non-medical reasons N ot on file 07/29/2023 Used illegal drugs past 12 months Not on file 07/29/2023 Comments No Sex and Gender Information Value Date Recorded Sex Assigned at Not on file Legal Sex Female 4:37 PM CDT Gender Identity Not on file Sexual Orientation Not on file documented as of this encounter Miscellaneous Notes * Telephone Encounter - Bee Reina MA - 06/06/2024 10:28 AM EST Done H UNLOADER * Telephone Encounter - Kathleen Garza - 06/04/2024 12:15 PM EST Patient calling to obtain order for: Blood work: Next Visit: 07/26/2024 Last Visit: 06/14/2023 Roxana Willis DO Diagnosis/ reason for order: annual wellness Discussed with provider? Order to be sent to: Additional information: megan advise when lab order has been put in for annual labs Caller Name: Sera Relation to patient: self Best Call Back OK to leave message on voicemail: H UNLOADER documented in this encounter Plan of Treatment Upcoming Encounters Date Type Department Care Team (Late st Contact Info) Description 08/13/2025 9:30 AM EST Office Visit [facility] Primary Care & Internal Med [address] [facility] [address] [place] [address] Roxana Willis DO [address] [facility] [address] [place] [address] documented as of this encounter Visit Diagnoses Not on filedocumented in this encounter Care Teams Labor Gang Supervisor Relationship Specialty Start Date End Date AlbaSapphireRoxana, DO [address] [place] [address] PCP - General Internal Medicine 06/02/22 documented as of this encounter
--- OUTSIDE RECORDS SUMMARY | 2025-01-07 10:27 | XMS_ITS | Referral Summary ---
Author Organization [employer] Address [address] [place] [address] Care Team Providers Care Natural Resources Extension Educator Name Role Phone Roxana Willis DO Primary Care Provider [phone] Encounters Date Type Department Care Team Description 01/07/2025 Abstract [facility] Primary Care & Internal Med [address] [place] [address] [address] Riya Matthews, AUTOMOTIVE DRIVABILITY TECHNICIAN 10/25/2024 Orders Only [facility] Primary Care & Internal Med [address] [place] [address] [address] Provider, MD Sherin from Last 3 Months Allergies No known active allergies Medications tamoxifen (NOLVADEX) 10 MG tablet Take 0.5 tablets (5 mg total) by mouth daily. Active Active Problems Problem Noted Date Diagnosed Date Encounter for general adult medical examination without abnormal findings 05/27/2020 Non-smoker 05/27/2020 Obesity with body mass index 30 or greater 05/27 Immunizations Name Administration Dates Next Due Tdap 07/18/2015,01/22/2010 Social History Tobacco Use Types Packs/Day Years Used Date Smoking Tobacco: Never Smokeless Tobacco: Never Tobacco Cessation:Counseling Given: Not Answered Alcohol Use Standard Drinks/Week Comments Yes 0 (1 standard drink = 0.6 oz pur e alcohol) PHQ-2 Answer Date Recorded Patient Health Questionnaire-2 Score 0 08/09/2024 Interpersonal Safety Answer Date Record ed Family [...] Date Baljeet rded Speak language other than Tunisian at home Not on file 07/29/2023 Want [...] on file Sexual Orientation Not on file Last Filed Vital Signs Vital Sign Reading Time Taken Comments Blood Pressure 125/81 08/09/2024 8:34 AM EST Pulse 69 08/09/2024 8:34 AM EST Temperature 36.5 C (97.7 F) 11/15/2023 11:30 AM EDT Respiratory Rate 14 11/15/2023 11:30 AM EDT Oxygen Saturation 98% 08/09/2024 8:34 AM EST Inhaled Oxygen Concentration - - Weight 75.8 kg (167 lb) 08/09/2024 8:34 AM EST Height 157.5 cm (5' 2 ) 08/09/2024 8:34 AM EST Body Mass Index 30.54 08/09/2024 8:34 AM EST Plan of Treatment Upcoming Encounters Date Type Department Care Team (Late st Contact Info) Description 08/13/2025 9:30 AM EST Office Visit [facility] Primary Care & Internal Med [address] [place] [address] [address] Roxana Willis DO [address] [place] [address] [address] [place] [address] Procedures Procedure Name Priority Date/Time Associated Diagnosis Comments COLONOSCOPY Routine 10/24/2024 1:06 PM EDT LIPID PANEL Routine 07/20/2024 10:44 AM EST Encounter for general adult medical examination without abnormal findings Hyperlipidemia, unspecified hyperlipidemia type Elevated blood pressure reading Postmenopausal Osteoporosis screening MAMMOGRAPHY Routine 01/13/2024 12:34 PM EDT PAP SMEAR Routine 06/24/2022 12:37 PM EST from Last 3 Months or Most Recently Relevant to Health Maintenance Results * COLONOSCOPY (10/24/2024 1:06 PM EDT) Historical Provider HEALTH MAINTENANCE Final Result * (ABNORMAL) Lipid panel (07/20/2024 10:44 AM EST) Cholesterol, Total 233(H) 100 - 199 mg/dL [facility] Triglycerides 46 0 - 149 mg/dL [facility] HDL Cholesterol 83 >39 mg/dL [facility] VLDL Cholesterol Lonnie 8 5 - 40 mg/dL [facility] LDL Calculated 142(H) 0 - 99 mg/dL [facility] Blood 07/20/2024 10:4 4 AM EST 07/20/2024 Narrative [facility] - 07/21/2024 9:06 AM EST Performed at: 01 - [address] [id number] Curriculum Counselor: Manjula Blue MD, Phone: [phone] Roxana Willis DO LAB BLOOD ORDERABLES Final Result [facility] * MAMMOGRAPHY (01/13/2024 12:34 PM EDT) Anatomical Region Laterality Modality Other Historical Provider HEALTH MAINTENANCE Final Result * PAP SMEAR (06/24/2022 12:37 PM EST) us Historical Provider HEALTH MAINTENANCE Final Result from Last 3 Months or Most Recently Relevant to Health Maintenance Insurance BLUE CROSS/BLUE SHIELD Care Teams Natural Resources Extension Educator Relationship Specialty Start Date End Date AlbaRoxana lindseyDO [address] [facility] [address] [place] [address] PCP - General Internal Medicine 06/02/22
--- OUTSIDE RECORDS SUMMARY | 2025-01-07 10:27 | XMS_ITS | Encounter Summary ---
Author Organization [employer] Address [address] [place] [address] Care Team Providers Care Scrum Master Name Role Phone Roxana Willis DO Primary Care Provider [phone] Encounter Details Date Type Department Care Team (Late st Contact Info) Description 01/07/2025 Abstract [facility] Primary Care & Internal Med [address] [facility] [address] [address] Riya Matthews, VETERINARIAN LABORATORY ANIMAL CARE [address] [place] [address] Social History Tobacco Use Types Packs/Day Years [...] Date Baljeet rded Speak language other than Citizen [place] at home Not on file 07/29/2023 Want [...] on file documented as of this encounter Plan of Treatment Upcoming Encounters Date Type Department Care Team (Late st Contact Info) Description 08/13/2025 9:30 AM EST Office Visit [facility] Primary Care & Internal Med [address] [place] [phone] [place] [address] [place] [address] [place] [address] documented as of this encounter Visit Diagnoses Not on filedocumented in this encounter Care Teams Scrum Master Relationship Specialty [place] [address] [place] [address] [address] [place], [place] [id number] PCP - General Internal Medicine 06/02/22 documented as of this encounter
--- OUTSIDE RECORDS SUMMARY | 2025-01-07 10:27 | XMS_ITS | Clinical Summary ---
Author Organization [employer] Address [address] [place] [address] Care Team Providers Care Plant Worker Name Role Phone Roxana Willis DO Primary Care Provider [phone] Allergies No known active allergies Medications tamoxifen (NOLVADEX) 10 MG tablet Take 0.5 tablets (5 mg total) by mouth daily. Active Active Problems Problem Noted Date Diagnosed Date Encounter for general adult medical examination without abnormal findings 05/27/2020 Non-smoker 05/27/2020 Obesity with body mass index 30 or greater 05/27 Encounters Date Type Department Care Team Description 01/07/2025 Abstract [facility] Primary Care & Internal Med [address] [place] [phone] Riya Matthews, CHERRY CUTTER 10/25/2024 Orders Only [facility] Primary Care & Internal Med [address] [place] [phone] ProviderSherin MD from Last 3 Months Immunizations Name Administration Dates Next Due Tdap 07/18/2015,01/22/2010 Family History Medical History Relation Name Comments Alcohol abuse Father COPD Father Hyperlipidemia Father Arthritis Mother Relation Name Status Comments Father Mother Social History Tobacco Use Types Packs/Day Years [...] Date Baljeet rded Speak language other than Chinese at home Not on file 07/29/2023 Want [...] Description 08/13/2025 9:30 AM EST Office Visit [facility] Primary Care & Internal Med [address] [place] [phone] Roxana Willis DO [address] [facility] [address] [place] [address] Health Maintenance Due Date Last Done Comments CT Colonography 1962 FOBT/FIT 1962 Fit-DNA (Cologuard) 1962 Sigmoidoscopy 1962 Pneumococcal 50+ years (1 of 1 - PCV) 2012 Shingles Vaccine (Zoster) (1 of 2) 2012 Pap Smear 06/24/2025 06/24/2022, 05/18/2021 DTAP/TDAP/TD VACCINES (3 - Td or Tdap) 07/18/2025 07/18/2015, 01/22/2010, 01/22/2010 Depression Screening (12+) 08/09/2025 08/09/2024 Breast Cancer Screening 10/10/2026 10/11/19 25, 01/13/2024, 01/13/2024, Additional history exists Lipid Panel 07/20/2027 07/20/2024, 05/19, 06/09/2022 Colonoscopy 10/24/2034 10/24/2024, 07/29/2014 Colorectal Cancer Screening 10/24/2034 Respiratory Syncytial Virus (RSV) Adult or (1 - 1-dose 75+ series) 2037 Hepatitis C Screening Addressed 05/23/2020 Overri dden with the intention of not completing the topic COVID-19 VACCINE Discontinued 10/22/2020 Tobacco Cessation Counseling and Screening (12+) Discontinued 08/09/2024 HIV Screening Discontinued Influenza Vaccine Discontinued Procedures Procedure Name Priority Date/Time Associated Diagnosis Comments COLONOSCOPY Routine 10/24/2024 1:06 PM EDT LIPID PANEL Routine 07/20/2024 10:44 AM EST Encounter for general adult medical examination without abnormal findings Hyperlipidemia, unspecified hyperlipidemia type Elevated blood pressure reading Postmenopausal Osteoporosis screening MAMMOGRAPHY Routine 01/13/2024 12:34 PM EDT HM PAP SMEAR Routine 06/24/2022 12:37 PM EST [...] 9:06 AM EST Performed at: 01 - [address] [id number] X Ray Service Engineer: Manjula Blue MD, Phone: [phone] Roxana Willis DO LAB BLOOD ORDERABLES Final Result [facility] * HM MAMMOGRAPHY (01/13/2024 12:34 PM EDT) Anatomical Region Laterality Modality Other Historical Provider HEALTH MAINTENANCE Final Result * HM PAP SMEAR (06/24/2022 12:37 PM EST) Historical Provider HEALTH MAINTENANCE Final Result from Last 3 Months or Most Recently Relevant to Health Maintenance Insurance BLUE CROSS/BLUE SHIELD Care Teams Plant Worker Relationship Specialty Start Date End Date Roxana Willis DO [address] [place] [address] PCP - General Internal Medicine 06/02/22
== END 2025-01-04 23:59 | disposition home or self-care (01) ==
LOC: LAB.DROPOF 01-07 10:06
PROVIDERS: PCP Internal Medicine; Visit Provider Nurse Practitioner Family
DX: R35.0 Frequency of micturition (principal)
CPT/HCPCS: 87086

== ENCOUNTER 2025-03-04 09:40 | Outpatient (CLI) | payer OTHER, SELFPAY ==
--- OUTSIDE RECORDS SUMMARY | 2024-02-17 05:05 | XMS_ITS | Encounter Summary ---
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 Role Phone Roxana Willis DO Primary Care Provider Reason for Visit * Auth/Cert (Routine) Specialty Diagnoses / Procedures Referred By Andry bell Referred To Contact Diagnoses Intraductal carcinoma in situ of left breast Procedures CHG RADIATION TREATMENT DELIVERY 1 MEV >= COMPLEX Referral ID Status Reason Start Date Expiration Date Visits Re quested Visits Authorized [id number] 1 1 Encounter Details Date Type Department Care Team (Late st Contact Info) Description 02/17/2024 5:05 AM EDT Hospital Encounter [facility] [address] [phone] Social History Tobacco Use Types Packs/Day Years Used Date Smoking Tobacco: Never Smokeless Tobacco: Never Alcohol Use Standard Drinks/Week Comments Yes 7 (1 standard drink = 0.6 oz pur e alcohol) 1 glass of wine per day AUDIT-C Answer Date Recorded Q1: How often do you have a drink containing alc ohol? 2-3 times a week 05/23/2020 Average Number of Drinks Not on file 020 Frequency of Binge Drinking Not on file 12/2019 Abuse Screen Answer Date Recorded Feels Unsafe at Home or Work/School no 05/22/2024 Feels Threatened by Someone no 11/2023 Does Anyone Try to Keep You From Having Contact with Others or Doing Things Outside Your Home? no 05/22/2024 Physical Signs of Abuse Present no 05/22/2024 PHQ-2 Answer Date Recorded Patient Health Questionnaire-2 Score 0 05/22/2024 Comments No Sex and Gender Information Value Date Recorded Sex Assigned at Not on file Legal Sex Female 12:11 PM EDT Gender Identity Not on file Sexual Orientation Not on file documented as of this encounter Functional Status documented as of this encounter Plan of Treatment Upcoming Encounters Date Type Department Care Team (Late st Contact Info) Description 04/15/2025 8:30 AM EDT Appointment [facility] [place] [address] [place] [address] 05/22/2025 9:00 AM EST Office Visit [facility] [address] [place] [address] Fanw Pickett APRN [address] [place] [address] 05/23/2025 11:15 AM EST Office Visit [facility] [address] [facility] [address] [place] [address] Suzy Osullivan MD [address] [facility] [address] [place] [address] 07/03/2025 1:20 PM EST Office Visit [facility] [address] [facility] [address] [place] [phone] Sosa Vera MD [address] [facility] [address] [place] [address] documented as of this encounter Visit Diagnoses Not on filedocumented in this encounter Care Teams Electric Arc Furnace Operator Relationship Specialty Start Date End Date [place] Roxana VidalesDO [address] [facility] [address] [place] [address] PCP - General Internal Medicine 02/10/17 documented as of this encounter
--- OUTSIDE RECORDS SUMMARY | 2024-03-20 06:10 | XMS_ITS | Encounter Summary ---
[facility] Address [address] [place] [address] Care Team Providers Care Aerodynamics Professor Name Role Phone Roxana Willis DO Primary Care Provider Encounter Details Date Type Department Care Team (Late st Contact Info) Description 03/20/2024 6:10 AM EDT Hospital Encounter [facility] [place] [address] [facility] [address] [place] [id number] Social History Tobacco Use Types Packs/Day Years [...] Info) Description 04/15/2025 8:30 AM EDT Appointment [facility] [place] [address] [place] [address] 05/22/2025 9:00 AM EST Office [facility] [address] [place] [address] Fawn Pickett, LICENSED REACTOR OPERATOR [address] [place] [address] 05/23/2025 11:15 AM EST Office Visit [facility] HEMATOLOGY & ONCOLOGY [address] [facility] [address] [place] [address] Suzy Osullivan MD [address] [facility] [address] [place] [address] 07/03/2025 1:20 PM EST Office Visit [facility] GYNECOLOGY [address] [facility] [address] [place] [phone] Sosa Vera MD [address] [facility] [address] [place] [address] documented as of this encounter Visit Diagnoses Not on filedocumented in this encounter Care Teams Aerodynamics Professor Relationship Specialty Start Date End Date Roxana Willis DO [address] [facility] [address] [place] [address] PCP - General Internal Medicine 02/10/17 documented as of this encounter
--- OUTSIDE RECORDS SUMMARY | 2024-04-17 06:15 | XMS_ITS | Encounter Summary ---
Author Organization [facility] Address [address] [place] [address] Care Team Providers Care Distributor Sales Manager Name Role Phone Roxana Willis DO Primary Care Provider Reason for Visit * Auth/Cert (Routine) Specialty Diagnoses / Procedures Referred By Andry bell Referred To Contact Diagnoses Intraductal carcinoma in situ of left breast Procedures CHG RADIATION TREATMENT DELIVERY 1 MEV >= COMPLEX Referral ID Status Reason Start Date Expiration Date Visits Re quested Visits Authorized [id number] 1 1 Encounter Details Date Type Department Care Team (Late st Contact Info) Description 04/17/2024 6:15 AM EDT Hospital Encounter [facility] ONCOLOGY [address] [phone] Social History Tobacco Use Types Packs/Day Years [...] Info) Description 04/15/2025 8:30 AM EDT Appointment [facility] [place] [address] [place] [address] 05/22/2025 9:00 AM EST Office [facility] [address] [place] [address] Fawn Pickett APRN [address] [place] [address] 05/23/2025 11:15 AM EST Office Visit [facility] HEMATOLOGY & ONCOLOGY [address] [facility] [address] [place] [address] Suzy Osullivan MD [address] [facility] [address] [place] [address] 07/03/2025 1:20 PM EST Office Visit [facility] GYNECOLOGY [address] [facility] [address] [place] [address] Sosa Vera MD [address] [facility] [address] [place] [address] documented as of this encounter Visit Diagnoses Not on filedocumented in this encounter Care Teams Distributor Sales Manager Relationship Specialty Start Date End Date [place] Roxana VidalesDO [address] [facility] [address] [place] [address] PCP - General Internal Medicine 02/10/17 documented as of this encounter
--- OUTSIDE RECORDS SUMMARY | 2024-05-18 07:10 | XMS_ITS | Encounter Summary ---
[facility] Address [address] [place] [address] Care Team Providers Care Bi Lead Name Role Phone Roxana Willis DO Primary Care Provider Encounter Details Date Type Department Care Team (Late st Contact Info) Description 05/18/2024 7:10 AM EDT Hospital Encounter [facility] [place] [address] [facility] [address] [place] [phone] Social History Tobacco Use Types Packs/Day Years [...] Info) Description 04/15/2025 8:30 AM EDT Appointment [facility] [place] [address] [facility] [address] [address] [place] [address] 05/22/2025 9:00 AM EST Office Visit [facility] [address] [place] [address] Fawn Pickett, CLOTHES DESIGNER [address] [place] [address] 05/23/2025 11:15 AM EST Office Visit [facility] HEMATOLOGY & ONCOLOGY [address] [facility] [address] [place] [address] Suzy Osullivan MD [address] [facility] [address] [place] [address] 07/03/2025 1:20 PM EST Office Visit [facility] GYNECOLOGY [address] [facility] [address] [place] [phone] Sosa Vera MD [address] [facility] [address] [place] [address] documented as of this encounter Visit Diagnoses Not on filedocumented in this encounter Care Teams Bi Lead Relationship Specialty Start Date End Date Roxana Willis DO [address] [facility] [address] [facility] [place] [address] PCP - General Internal Medicine 02/10/17 documented as of this encounter
--- NOTE | 2025-03-04 09:42 | XR_ITS ---
FINAL REPORT CLINICAL HISTORY: re-evaluation on right 5th met fracture 2nd toe stubbed tuesday, bruised, discolored COMPARISON: 07/03/2024 FINDINGS: RIGHT FOOT 3 views of the right foot were obtained. There is a healing fracture through the base of the 5th metatarsal. There is no acute fracture or dislocation. Visualized joint spaces are normally aligned. Soft tissues are unremarkable. IMPRESSION: No acute bony abnormality. Healing 5th metatarsal fracture. Reviewed, Interpreted and Dictated by Trace Hernandez MD Transcribed by Suzy Reilly Authenticated and [facility]
--- OUTSIDE RECORDS SUMMARY | 2025-03-04 09:45 | XMS_ITS | Referral Summary ---
Author Organization [employer] ([place], [place], [place], [place]) Address [address] [place] [address] Care Team Providers Care Core Man Name Role Phone Roxana Willis DO Primary Care Provider [phone] Encounters Date Type Department Care Team Description 01/07/2025 Abstract [facility] Primary Care & Internal Med [address] [facility] [address] [address] Riya Matthews, JEOVANNY from Last 3 Months Allergies No known [...] drink = 0.6 oz pur e alcohol) [facility] - Mental Health Answer Date Recorde d Little interest or pleasure in doing things Not at all 08/09/2024 Feeling down, depressed, or hopeless Not at all 08/09/2024 Feeling of Stress Not on file 08/09/2024 Family and Community Support Answer Rakesh e Recorded Help with Day to Day Activities Not on file 07/29/2023 Feeling Lonely or Isolated Not on file 07/29 Educational Attainment Answer Date Baljeet rded Speak language other than Armenian at home Not on file 07/29/2023 Want help with school or training Not on file 07/29/2023 Substance Use Answer Date Recorded Used [...] Description 08/13/2025 9:30 AM EST Office Visit [facility] Primary Care & Internal Med [address] [facility] [address] [place] [phone] Alba Roxana, DO [address] [facility] [address] [place] [address] Procedures Procedure Name Priority Date/Time Associated Diagnosis Comments COLONOSCOPY Routine 10/24/2024 1:06 PM EDT LIPID PANEL Routine 07/20/2024 10:44 AM EST Encounter for general adult medical examination without abnormal findings Hyperlipidemia, unspecified hyperlipidemia type Elevated blood pressure reading Postmenopausal Osteoporosis screening HM MAMMOGRAPHY Routine 01/13/2024 12:34 PM EDT HM PAP SMEAR Routine 06/24/2022 12:37 PM EST from Last 3 Months or Most Recently Relevant to Health Maintenance Results * HM COLONOSCOPY (10/24/2024 1:06 PM EDT) Historical Provider [...] 9:06 AM EST Performed at: 01 - [facility] [id number] Monument Erector: Manjula Blue MD, Phone: [phone] Roxana Willis DO LAB BLOOD ORDERABLES Final Result [facility] * HM MAMMOGRAPHY (01/13/2024 12:34 PM EDT) Anatomical Region Laterality Modality Other Historical Provider HEALTH MAINTENANCE Final Result * HM PAP SMEAR (06/24/2022 12:37 PM EST) Historical Provider HEALTH MAINTENANCE Final Result from Last 3 Months or Most Recently Relevant to Health Maintenance Insurance BLUE CROSS/BLUE SHIELD Care Teams Core Man Relationship Specialty Start Date End Date Roxana Willis DO [address] [place] [address] PCP - General Internal Medicine 06/02/22
--- OUTSIDE RECORDS SUMMARY | 2025-03-04 09:45 | XMS_ITS | Encounter Summary ---
Author Organization [employer] ([place], [place], [place], [place]) Address [address] [place] [address] Care Team Providers Care Rubber Liner Name Role Phone AlbaRoxana Primary Care Provider [phone] Reason for Visit * Reason Onset Date Comments Labs Only 06/04/2024 Encounter Details Date Type Department Care Team (Late st Contact Info) Description 06/04/2024 Telephone [facility] Primary Care & Internal Med [address] [facility] [address] [place] [address] Mingo RoxanaDO [address] [facility] [address] [place] [id number] Labs Only Social History Tobacco Use Types Packs/Day Years Used Date Smoking Tobacco: Never Smokeless Tobacco: Never Alcohol Use Standard Drinks/Week Comments Yes 0 (1 standard drink = 0.6 oz pur e alcohol) Family and Community Support Answer Rakesh e Recorded Help with Day to Day Activities Not on file 07/29/2023 Feeling Lonely or Isolated Not on file 07/29 Educational Attainment Answer Date Baljeet rded Speak language other than Maldivian at home Not on file 07/29/2023 Want [...] MA - 06/06/2024 10:28 AM EST Done ER GRINDER * Telephone Encounter - Kathleen Garza - [...] Back OK to leave message on voicemail: ER GRINDER documented in this encounter Plan of Treatment Upcoming Encounters Date Type Department Care Team (Late st Contact Info) Description 08/13/2025 9:30 AM EST Office Visit [facility] Primary Care & Internal Med [address] [place] [address] [address] [place] [address] Roxana Willis DO [address] [facility] [address] [place] [address] documented as of this encounter Visit Diagnoses Not on filedocumented in this encounter Care Teams Rubber Liner Relationship Specialty Start Date End Date Roxana Willis DO [address] [facility] [address] [place] [address] PCP - General Internal Medicine 06/02/22 documented as of this encounter
--- OUTSIDE RECORDS SUMMARY | 2025-03-04 09:45 | XMS_ITS | Clinical Summary ---
Author Organization [employer] ([place], [place], [place], [place]) Address [address] [place] [address] Care Team Providers Care Off Track Betting Manager Name Role Phone Roxana Willis DO Primary Care Provider [phone] Allergies No known active allergies Medications tamoxifen (NOLVADEX) 10 MG tablet Take 0.5 tablets (5 mg total) by mouth daily. Active Active Problems Problem Noted Date Diagnosed Date Encounter for general adult medical examination without abnormal findings 05/27/2020 Non-smoker 05/27/2020 Obesity with body mass index 30 or greater 05/27 Encounters Date Type Department Care Team Description 01/07/2025 Abstract [facility] Primary Care & Internal Med [address] [place] [address] Riya Matthews, PROTOTYPE DEICER ASSEMBLER from Last 3 Months Immunizations Name Administration [...] drink = 0.6 oz pur e alcohol) [facility] - Mental Health Answer Date Recorde d [...] Date Baljeet rded Speak language other than Bulgarian at home Not on file 07/29/2023 Want [...] Description 08/13/2025 9:30 AM EST Office Visit [facility] Primary Care & Internal Med [address] [facility] [address] [place] [address] Roxana Willis, [address] [facility] [address] [place] [address] Health Maintenance Due Date Last Done Comments [...] Results * COLONOSCOPY (10/24/2024 1:06 PM EDT) us Historical Provider HEALTH MAINTENANCE Final Result * [...] - 07/21/2024 9:06 AM EST Performed at: - [facility] [address] [place] [address] [address], [place] [id number] Integrative Medicine Physician: Manjula Blue MD, Phone: [phone] us Roxana Willis DO LAB BLOOD ORDERABLES Final Result [facility] * HM MAMMOGRAPHY (01/13/2024 12:34 PM EDT) Anatomical Region Laterality Modality Other Historical Provider HEALTH MAINTENANCE Final Result * HM PAP SMEAR (06/24/2022 12:37 PM EST) Historical Provider HEALTH MAINTENANCE Final Result from Last 3 Months or Most Recently Relevant to Health Maintenance Insurance BLUE CROSS/BLUE SHIELD Care Teams Off Track Betting Manager Relationship Specialty Start Date End Date Roxana Willis DO [address] [facility] [address] [place] [id number] PCP - General Internal Medicine 06/02/22
--- OUTSIDE RECORDS SUMMARY | 2025-03-04 09:46 | XMS_ITS | Encounter Summary ---
Author Organization [employer] ([place], [place], [place], [place]) Address [address] [place] [address] Care Team Providers Care Station Inspector Name Role Phone Roxana Willis DO Primary Care Provider [phone] Encounter Details Date Type Department Care Team (Late st Contact Info) Description 01/07/2025 Abstract [facility] Primary Care & Internal Med [address] [facility] [address] [address] Riya Matthews, TUCKING MACHINE OPERATOR [address] [place] [address] Social History Tobacco Use Types Packs/Day Years Used Date Smoking Tobacco: Never Smokeless Tobacco: Never Alcohol Use Standard Drinks/Week Comments Yes 0 (1 standard drink = 0.6 oz pur e alcohol) [facility] - Mental Health Answer Date Recorde [...] Date Baljeet rded Speak language other than Chadian at home Not on file 07/29/2023 Want [...] Description 08/13/2025 9:30 AM EST Office Visit [facility] Primary Care & Internal Med [address] [place] [address] [address] [place] [address] [place] [address] [place] [address] [address] [place] [address] documented as of this encounter Visit Diagnoses Not on filedocumented in this encounter Care Teams Station Inspector Relationship Specialty [place] [address] [place] [address] [address] [place] [address] PCP - General Internal Medicine 06/02/22 documented as of this encounter
--- OUTSIDE RECORDS SUMMARY | 2025-03-04 09:46 | XMS_ITS | Clinical Summary ---
Author Organization [facility] Address [address] [place] [address] Care Team Providers Care Paperhanger Apprentice Name Role Phone Roxana Willis DO Primary Care Provider Allergies No known active allergies Medications ibuprofen (ADVIL,MOTRIN) 200 MG tablet Take 2 tablets by mouth Every 6 (Six) Hours As Needed for Mild Pain. For right ankle/foot pain Active tamoxifen (NOLVADEX) 10 MG tablet Take 0.5 tablets by mouth Daily. 45 tablet 3 4 Active sodium-potassiu m-magnesium sulfates (Suprep Bowel Prep Kit) 17.5-3.13-1.6 GM/177ML solution oral solution Take First Dose at 5 pm Take Second Dose at 10 pm, Nothing to eat or drink after midnight. May substitute for Golytely or Moviprep. Follow instructions provided by Office. Call [phone] with questions. 354 mL 5 Active Active Problems Problem Noted Date Diagnosed Date Malignant neoplasm of left b reast in female, estrogen receptor positive 01/18/2024 Immunizations Immunization Administration Dates Next Due Fluzone (or Fluarix & Flulaval for VFC) >6mos ,07/25/2018 Hepatitis A 01/23/2019,07/04/2018 Tdap 07/18/2015,01/22/2010 Family History Medical History Relation Name Comments Hypertension Father Stroke Maternal Grandfather Stroke Maternal Grandmother Cancer Mother Lipocarcoma Hypertension Mother Diabetes Paternal Grandfather Lung cancer Paternal Grandfather Heart disease Paternal Grandmother Breast cancer Neg Hx Colon cancer Neg Hx Endometrial cancer Neg Hx Ovarian cancer Neg Hx Uterine cancer Neg Hx Relation Name Status Comments Father Maternal Grandfather Maternal Grandmother Mother Paternal Grandfather Paternal Grandmother Social History Tobacco Use Types Packs/Day Years Used Date Smoking Tobacco: Never Smokeless Tobacco: Never Tobacco Cessation:Counseling Given: Not Answered Alcohol Use Standard Drinks/Week Comments Yes 7 [...] Sign Reading Time Taken Comments Blood Pressure 134/78 07/02/2024 1:17 PM EST Pulse 69 05/25/2024 10:32 AM EST Temperature 36.3 C (97.3 F) 05/25/2024 10:32 AM EST Respiratory Rate 16 05/25/2024 10:32 AM EST Oxygen Saturation 98% 05/25/2024 10:32 AM EST RA Inhaled Oxygen Concentration - - Weight 75.8 kg (167 lb) 07/02/2024 1:17 PM EST Height 157.5 cm (5' 2.01 ) 07/02/2024 1:17 PM ES T Body Mass Index 30.54 07/02/2024 1:17 PM EST Plan of Treatment Upcoming Encounters Date Type Department Care Team (Late st Contact Info) Description 04/15/2025 8:30 AM EDT Appointment [facility] [place] [address] [place] [address] 05/22/2025 9:00 AM EST Office Visit [facility] [address] [place] [phone] Fawn Pickett APRN [address] [place] [address] 05/23/2025 11:15 AM EST Office Visit [facility] [address] [facility] [address] [place] [phone] Suzy Osullivan MD [address] [facility] [address] [place] [address] 07/03/2025 1:20 PM EST Office Visit [facility] [address] [facility] [address] [place] [phone] Sharon Mckeon MD [address] [facility] [address] [place] [address] Health Maintenance Due Date Last Done Comments Pneumococcal Vaccine 50+ (1 of 2 - PCV) 1981 ZOSTER VACCINE (1 of 2) 1981 COLOGUARD 12/29/2007 COLON CANCER SCREENING 5 YEA R SIGMOIDOSCOPY 12/29/2007 CT COLONOGRAPHY 12/29/2007 FECAL OCCULT BLOOD TEST 12/29/2007 FIT Testing (1 year) 12/29/2007 ANNUAL PHYSICAL 03/09/2017 HEPATITIS C SCREENING 03/09/2017 COVID-19 Vaccine (2 - Jansse n risk series) 11/19/2020 10/22/2020 PT PLAN OF CARE 12/15/2023 INFLUENZA VACCINE 04/17/2025 05/27/2020, 07/25/2018 PAP SMEAR 06/24/2025 06/24/2022, 03/09/2017 Annual Gynecologic Pelvic an d Breast Exam 07/03/2025 07/02/2024, 05/23/2020 TDAP/TD VACCINES (3 - Td or Tdap) 07/18/2025 016, 01/22/2010 MAMMOGRAM 10/10/2026 10/10/2024, 05/0 03/2024, 11/09/2023, Additional history exists COLONOSCOPY 10/24/2034 10/24/2024 COLORECTAL CANCER SCREENING 10/24/2034 Procedures Procedure Name Priority Date/Time Associated Diagnosis Comments SCANNED - COLONOSCOPY 10/24/2024 MAMMO DIAGNOSTIC DIGITAL TOMOSYNTHESIS BILATERAL W CAD Routine 10/10/2024 10:43 AM EDT Intraductal carcinoma in situ of left breast LIQUID-BASED PAP SMEAR, [facility]) Routine 06/24/2022 9:33 AM EST Pap test, as part of routine gynecological examination from Last 3 Months or Most Recently Relevant to Health Maintenance Results * Colonoscopy, Scan (10/24/2024) Randy Cesar MD CHART REVIEW T ABS Final Result * Mammo Diagnostic Digital Tomosynthesis Bilateral With CAD (10/10/2024 10:43 AM EDT) Anatomical Region Laterality Modality Breast Bilateral Mammography 10/10/2024 11:0 6 AM EDT Impressions 10/10/2024 11:08 AM EDT New presumed post lumpectomy changes left breast. Stable right breast mammogram. RECOMMENDATION: Recommend 6-month mammographic follow-up of the left breast. ACR BI-RADS CATEGORY: 3, PROBABLY BENIGN CAD was utilized. The standard false-negative rate of mammography is between 10% and 25%. Complex patterns or increased breast density will markedly elevate the false-negative rate of mammography. A letter, in lay terminology, with the results of this exam was given to the patient at the time of the visit. At our facility, a triangular marker is positioned over a palpable area of concern indicated by the patient. A nondalton marker is placed over a visible skin lesion. A linear marker indicates a scar. _ Physician Order Diagnostic 6 Month follow up Mammogram with Breast Ultrasound if needed. Diagnosis: Abnormal Mammogram 10/10/2024 11:[address] 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 She has no reported breast complaints. She is due for routine imaging of her right breast at this time as well. TECHNIQUE: Low dose full field digital breast tomosynthesis imaging was performed consisting of bilateral CC and MLO views. COMPARISON: 01/13/2024, 12/02/2023, 11/24/2023, 11/09/2023, 06/04/2022, 05/23/2021, 09/12/2019 FINDINGS: There are scattered areas of fibroglandular density. Left breast: There is new asymmetry/architectural distortion in the left posterior approximately 3:00 distribution. This is in the region of the overlying skin marker placed to indicate the patient's lumpectomy scar. The remainder the fibroglandular pattern is stable accounting for the interval surgery. No spiculated masses or suspicious calcifications are seen. Right breast: The fibroglandular pattern is stable. There are no suspicious masses, worrisome calcifications, areas of architectural distortion or other secondary signs of malignancy. us Nicholas Wang MD IMG MAMMOGRAPHY ORDERABLE S Final Result * LIQUID-BASED PAP SMEAR, [facility]) (06/24/2022 9:33 AM EST) Reference Lab Report [facility] [address] [place] [address] or [phone] Arjun Salazar M.D., Grain Cleaner PATIENT NAME LABORATORY NO[facility] [address] SERA GUZMAN [id number] AGE SEX SSN CLIENT REF # [facility] DR SHARON MCKEON 61 1960 F [id number] [address] [facility] [address] REQUESTING MConnor [place] [address] SHARON MCKEON DATE COLLECTED DATE RECEIVED DATE REPORTED 06/24/2022 06/24/2022 06/28/2022 ThinPrep Pap with Cytyc Imaging DIAGNOSIS: Negative for intraepithelial lesion or malignancy Multiple factors can influence accuracy of Pap tests; therefore, screening at regular intervals is necessary for early cancer detection. COMMENT: FUNGAL ORGANISMS MORPHOLOGICALLY CONSISTENT WITH JAQUELIN SPECIES ARE PRESENT. SPECIMEN ADEQUACY: SATISFACTORY FOR EVALUATION Transformation zone is present. SOURCE OF SPECIMEN: CERVICAL SLIDES: 1 CLINICAL HISTORY: Pap test, as part of routine gynecological examination Post menopausal HPV HR-HPV POOL: Negative The Aptima HPV assay is an in vitro nucleic acid amplification test for the qualitative detection of E6/E7 viral messenger RNA from 14 high risk types of HPV in cervical specimens. The high risk HPV types detected include: 16, 18, 31, 33, 35, 39, 45, 51, 52, 56, 58, 59, 66, 68 DRY CLEANER: THIERRY VILLAGOMEZ(ASCP) CPT CODES: 56049, 40995 06/28/2022 5:00 AM EST [facility] ThinPrep Vial Cervix uteri structure / Unknown Collection / Unknown 06/24/2022 9:33 AM EST 06/24/2022 9:33 AM EST Sharon Mckeon MD PATHOLOGY/CYTOLOGY ORDERABLES Fi nal Result [facility]
[address] [place] [address], from Last 3 Months or Most Recently Relevant to Health Maintenance Insurance [employer] Care Teams Paperhanger Apprentice Relationship Specialty Start Date End Date Roxana Willis [address] [place] [address] PCP - General Internal Medicine 02/10/17
--- OUTSIDE RECORDS SUMMARY | 2025-03-04 09:46 | XMS_ITS ---
Author Organization [facility] Address [address] [place] [address] Care Team Providers Care Assistant Manager Pt Name Role Phone Roxana Willis DO Primary Care Provider Active Problems Problem Noted Date Diagnosed Date Malignant neoplasm of left b reast in female, estrogen receptor positive 01/18/2024 Current Treatment and Therapy Plans No current plan information found. Past Treatment and Therapy Plans No past plan information found. Radiation Treatments * Course 1 03/21/2024 - 04/17/2024 Treatment Period Energy Fraction Dose Fractions Total Dose Plans Planned Lt [facility] 03/21/2024 - 04/17/2024 2.67 15 4,005 BrBs 04/11/2024 - 04/17/2024 2 5 / 5 1,000 Reference Points Delivered [facility] 03/21/2024 - 04/17/2024 40.05 LtBrstBs 04/11/2024 - 04/17/2024 10
== END 2025-03-04 23:59 | disposition home or self-care (01) ==
LOC: RAD 09:40
PROVIDERS: PCP Internal Medicine; Visit Provider Podiatrist
DX: S92.351D Displaced fracture of fifth metatarsal bone, right foot, subsequent encounter for fracture with routine healing (principal); S92.501D Displaced unspecified fracture of right lesser toe(s), subsequent encounter for fracture with routine healing
CPT/HCPCS: 73630